=== PATIENT | female | born 2000 | race Caucasian/White ===

== ENCOUNTER 2021-05-10 16:29 | Emergency (ER) | payer BC, SELFPAY ==
[2021-05-10 16:30] VITALS: BP 112/83; PULSE 74; RESP 20; TEMP 36.8; O2SAT 97
--- NOTE | 2021-05-10 16:36 | ED.URI ---
HPI - URI/Sore Throat General Chief Complaint: Upper Respiratory Infection Stated Complaint: cough sore throat runny nose Time Seen by Provider: 05/10/21 16:55 Source: patient and RN notes reviewed Mode of arrival: ambulatory Limitations: no limitations History of Present Illness HPI Narrative: 21-year-old female presents with concern for cough, sore throat, vomiting, nasal drainage. Reports symptoms started on Saturday. Reports exposure to a coworker who was Covid positive. She denies shortness of breath, fevers, body aches, chills, sweats, loss of sense of taste or smell. Reports taking [id number] antihistamine. MD elicited complaint: cough Related Data Allergies Allergy/AdvReac Type Severity Reaction Status Date / Time No Known Allergies Allergy Verified 05/10/21 17:03 Review of Systems Review of Systems: CONSTITUTIONAL: Denies malaise, chills, sweats, or fever. EYES: Denies visual changes, redness, or discharge. ENT: Reports rhinorrhea, congestion, sore throat. Denies sinus pain, otalgia CARDIOVASCULAR: Denies chest pain, palpitations, or edema. RESPIRATORY: Reports cough. Denies dyspnea. GASTROINTESTINAL: Denies abdominal pain, nausea, vomiting, diarrhea SKIN: Denies rash or itching. MUSCULOSKELETAL: Denies myalgia. NEUROLOGIC: Denies headache. All systems reviewed & are unremarkable except as noted in HPI and below PMFSH Comments At time of signature, agree with nursing past medical, surgical, social and family history. There is no relevant family history pertinent to the presenting complaint Exam Narrative: GENERAL: Well-appearing, well-nourished, and in no acute distress. HEAD: Normocephalic EYES: PERRLA, conjunctivae clear ENT: Nares clear, clear discharge. Mucous membranes moist. TM pearly lima with dull light reflex bilaterally; no tragal tenderness. Oropharynx mildly erythematous without lesions. Tonsils not enlarged and without exudate, no drooling, no hoarseness, no trismus, uvula midline. NECK: Supple. No lymphadenopathy CHEST: Clear to auscultation, breath sounds equal. No wheezing, rhonchi, rales, or stridor. No respiratory distress, speaks in full sentences. HEART: Regular rate and rhythm. No murmur heard. SKIN: Warm, dry, no rash. NEURO: Alert and oriented x3. PSYCH: Normal mood and affect Course Course Emergency Course: Patient is aware of diagnosis, understands and agrees to treatment plan. Anticipatory guidance given. Patient agrees to follow-up as directed and is aware of reasons to seek care at the emergency department. Portions of this record may have been created with voice recognition software Vital Signs Vital signs: Reviewed. MDM - URI/Sore Throat MDM Narrative Medical decision making narrative: Differential diagnosis considered: Luther virus, strep pharyngitis, allergic rhinitis, upper respiratory tract infection, sinusitis, rhinosinusitis, nasopharyngitis. viral pharyngitis, otitis media, otitis externa, pneumonia, bronchitis, viral cough syndrome, viral syndrome, and influenza. Exam findings show no acute concerns or changes; patient is non-toxic appearing and is in no distress. Patient is appropriate for outpatient treatment and follow-up. Critical Care Time Critical Care Time Critical Care Time: No Discharge Plan Discharge Clinical Impression: Upper respiratory infection Qualifiers: URI type: unspecified viral URI Qualified Code(s): J06.9 - Acute upper respiratory infection, unspecified Patient Disposition: Home, Self-Care Condition: Stable Instructions: Upper Respiratory Infection (ED) Additional Instructions: Your rapid COVID test was negative, a PCR test is being sent to the lab. If you are symptomatic, there is a high possibility your rapid test may not have detected the virus. Your negative rapid test does not rule out Covid infection, please wait for the PCR results to confirm that. Continue to isolate, wear a mask, wash your hands. Common Adult Symptoms:
[2021-05-12 18:14] LABS: SARS-CoV-2 RNA PCR Negative
== END 2021-05-10 17:10 | disposition home or self-care (01) ==
PROVIDERS: Emergency Provider Nurse Practitioner
DX: J02.9 Acute pharyngitis, unspecified (principal); Z20.822 Contact with and (suspected) exposure to COVID-19
CPT/HCPCS: 87081; 87426; 87880; 99213; C9803; G0463; U0003; U0005

== ENCOUNTER 2023-08-03 17:23 | Emergency (ER) | payer OTHER, SELFPAY ==
[2023-08-03 17:29] VITALS: BP 102/70; PULSE 86; RESP 16; TEMP 36.8; O2SAT 99
--- NOTE | 2023-08-03 17:44 | ED.URI ---
HPI - URI/Sore Throat General Chief Complaint: Upper Respiratory Infection Stated Complaint: Sore Throat Source: patient, family and RN notes reviewed History of Present Illness HPI Narrative: 23 yo F presents to urgent care with mom at side. Pt states she has been having strep throat x 10 days. Denies any other symptoms including fevers, chills, vomiting, chest pain, or SOB. Related Data Allergies Allergy/AdvReac Type Severity Reaction Status Date / Time No Known Allergies Allergy Verified 08/03/23 17:46 Review of Systems Review of Systems: CONSTITUTIONAL: Denies fever, chills, or sweats. EYES: Denies visual changes, redness, or discharge. ENT: Denies otalgia CARDIOVASCULAR: Denies chest pain, palpitations, or edema. RESPIRATORY: Denies cough or dyspnea. GASTROINTESTINAL: Denies abdominal pain, nausea, vomiting, or diarrhea. GENITOURINARY: Denies dysuria or hematuria. SKIN: Denies rash or itching. MUSCULOSKELETAL: Denies back pain, joint pain, or myalgia. NEUROLOGIC: Denies headache, numbness, or weakness. Pertinent positives per HPI. PMFSH Comments At the time of my signature, I reviewed and agree with the nursing past medical, surgical, social, and family history. There is no relevant family history pertinent to the patient complaint. Exam Narrative: GENERAL: This is a well-nourished, well-developed patient, in no apparent distress. HEAD: normocephalic, atraumatic. EYES: Sclera clear/white. Vision is grossly intact. EARS: External ears normal, auditory canals clear and without drainage, TMs normal without perforation. Hearing grossly intact. NOSE: External nose normal with no obvious nasal discharge, nares without redness, no rhinorrhea. THROAT: Mucous membranes moist, posterior pharynx clear. NECK: Neck supple, non-tender without lymphadenopathy, masses or thyromegaly. CARDIOVASCULAR: Regular rate and rhythm without murmurs, gallops, or rubs. RESPIRATORY: Clear to auscultation. Breath sounds equal bilaterally. No wheezes, rales, or rhonchi. GASTROINTESTINAL: Abdomen soft, non-tender, nondistended. Bowel sounds are active. No hepato-splenomegaly, or palpable masses. No guarding. SKIN: warm, intact with no suspicious lesions or rash, good texture and turgor. NEURO: awake, alert, and oriented to person, place and time. There were no obvious focal neurologic abnormalities. EXTREMITIES: No clubbing, cyanosis, or edema. No joint tenderness, effusion, or edema noted. BACK: Nontender without deformity or crepitus. No flank tenderness. Course Course Level of Care: Express Care Visit Vital Signs Vital signs: Vital Signs Temperature 98.3 F 08/03/23 17:29 Pulse Rate 86 08/03/23 17:29 Respiratory Rate 16 08/03/23 17:29 Blood Pressure 102/70 08/03/23 17:29 Pulse Oximetry 99 08/03/23 17:29 Oxygen Delivery Room Air 08/03/23 17:29 Temperature 98.3 F 08/03/23 17:29 Pulse Rate 86 08/03/23 17:29 Respiratory Rate 16 08/03/23 17:29 Blood Pressure 102/70 08/03/23 17:29 Pulse Oximetry 99 08/03/23 17:29 Oxygen Delivery Room Air 08/03/23 17:29 Reviewed MDM - URI/Sore Throat MDM Narrative Medical decision making narrative: After 24 hours on antibiotics throw tooth brush away and start using a new one. Increase your Vitamin C. Do not share drinks. Take Motrin alternating with Tylenol for pain and/or fever alternating every 4 hours. Increase fluids, avoid caffeine. Take a probiotic daily or eat a low sugar yogurt while taking the antibiotic. Follow up with Primary provider if not getting better this week Differential Diagnosis Differential diagnosis: Likely upper respiratory infection, otitis media, sinusitis, viral infection and pharyngitis Lab Data Attestation: I reviewed the patient's lab results. Labs: Strep Screen Positive Group A Strep *(Reference Range: Negative)* Critical Care Time Critical Care T
== END 2023-08-03 18:02 | disposition home or self-care (01) ==
PROVIDERS: Emergency Provider Nurse Practitioner Family
DX: J02.0 Streptococcal pharyngitis (principal)
CPT/HCPCS: 87880; 99213; G0463

== ENCOUNTER 2024-08-07 16:32 | Emergency (ER) | payer SELFPAY ==
[2024-08-07 16:47] VITALS: BP 125/82; PULSE 100; RESP 18; TEMP 37.3; O2SAT 100
--- NOTE | 2024-08-07 17:09 | ED.URI ---
HPI - URI/Sore Throat General Chief Complaint: Upper Respiratory Infection Stated Complaint: Sore Throat History of Present Illness HPI Narrative: 24 y/o female presented for c/o sore throat, nasal congestion and pressure. Onset 2 days. Taking cough drops without much improvement. Denies cough, sob, wheezing, n/v/d/f/c. Related Data Home Medications Medication Instructions Recorded Confirmed sertraline 50 mg tablet 50 mg PO DAILY 08/07/24 08/07/24 Allergies Allergy/AdvReac Type Severity Reaction Status Date / Time No Known Allergies Allergy Verified 08/07/24 17:17 Review of Systems Review of Systems: CONSTITUTIONAL: Denies body aches, fever, chills, or sweats. EYES: Denies visual changes, redness, or discharge. ENT: reports rhinorrhea, congestion, denies sore throat or otalgia. CARDIOVASCULAR: Denies chest pain, palpitations, or edema. RESPIRATORY: Denies cough dyspnea. GASTROINTESTINAL: Denies abdominal pain, nausea, vomiting, or diarrhea. SKIN: Denies rash, itching, or wounds. MUSCULOSKELETAL: Denies back pain, joint pain, or myalgia. NEUROLOGIC: Denies headache Exam Narrative: GENERAL: mildly Ill-appearing, no acute distress. EYES: conjunctivae clear ENT: Mucous membranes moist. TMs pearly lima with normal light reflex bilaterally; no tragal tenderness. Oropharynx erythematous without lesions. Tonsils absent. No drooling, no hoarseness, no trismus, uvula midline. No tripod positioning, hot potato voice, or soft palate swelling. NECK: Supple. No lymphadenopathy CHEST: Clear to auscultation, breath sounds equal. No respiratory distress, speaks in full sentences. HEART: Regular rate and rhythm. No murmur heard. SKIN: Warm, dry, no rash. NEURO: Alert and oriented x3. Course Course Emergency Course: Patient is aware of diagnosis, understands and agrees to treatment plan. Anticipatory guidance given. Patient agrees to follow-up as directed and is aware of reasons to seek care at the emergency department. Portions of this record may have been created with voice recognition software Level of Care: Express Care Visit Vital Signs Vital signs: Vital Signs Temperature 99.2 F 08/07/24 16:47 Pulse Rate 100 08/07/24 16:47 Respiratory Rate 18 08/07/24 16:47 Blood Pressure 125/82 08/07/24 16:47 Pulse Oximetry 100 08/07/24 16:47 Temperature 99.2 F 08/07/24 16:47 Pulse Rate 100 08/07/24 16:47 Respiratory Rate 18 08/07/24 16:47 Blood Pressure 125/82 08/07/24 16:47 Pulse Oximetry 100 08/07/24 16:47 MDM - URI/Sore Throat MDM Narrative Medical decision making narrative: Neg flu, covid, and strep result reviewed with pt. Advise supportive treatments. Patient is appropriate for outpatient treatment and follow-up. Differential Diagnosis Differential diagnosis: Likely upper respiratory infection, otitis media, sinusitis, viral infection, influenza and pharyngitis Discharge Plan Discharge Clinical Impression: Upper respiratory infection Qualifiers: URI type: unspecified URI Qualified Code(s): J06.9 - Acute upper respiratory infection, unspecified Patient Disposition: Home, Self-Care Condition: Stable Instructions: Antibiotic Form, Upper Respiratory Infection (ED) Additional Instructions: Flu and covid negative. Rapid strep swab was negative today You will be notified in a few days if the culture comes back positive for strep, and appropriate antibiotics will be called in at that time. if symptoms are due to a viral illness, it is not treated with antibiotics. Viral symptoms can be present for up to 10-14 days. Recommendations: Flonase spray and Zyrtec for sinus congestion Cough syrup may cause drowsiness; avoid driving or take it at night time. Tylenol every 8 hours as needed for pain/fever Soft foods, cool liquids, warm tea. Gargle with warm saltwater twice a day. Chloraseptic spray and throat lozenges. Rest and stay hydrated. --Follow up with your PCP --Go to the ER immediately if you cannot swallow your saliva, trouble breathing/wheezing, throat swelling, pain is persistent and severe Prescriptions: No Action amoxicillin 500 mg capsule 500 mg PO Q12H Qty: 20 0RF Follow-up/Referrals: PHYSICIAN,PLASMA PROCESSING TECHNICIAN [Primary Care Provider] - Stand Alone Forms: Work/School Release IP
[2024-08-07 17:15] LABS: EDSTREPNEGPOS1 Negative (Negative)
[2024-08-07 17:40] LABS: EDCOVIDSCREEN Negative (Negative)
[2024-08-07 17:41] LABS: EDINFLUASCREEN Negative (Negative); EDINFLUBSCREEN Negative (Negative)
== END 2024-08-07 17:20 | disposition home or self-care (01) ==
PROVIDERS: Emergency Provider Nurse Practitioner Family
DX: J06.9 Acute upper respiratory infection, unspecified (principal); Z20.822 Contact with and (suspected) exposure to COVID-19
CPT/HCPCS: 87081; 87426; 87804; 87880; 99213; G0463

== ENCOUNTER 2025-03-23 13:09 | Emergency (ER) | payer SELFPAY ==
--- NOTE | ~2025-03-23 | XR_ITS ---
EXAMINATION: XR chest 2V 03/23/2025 13:46 INDICATION: Cough and dyspnea PROCEDURE: 2 view chest COMPARISON: No prior studies for comparison. FINDINGS: The lungs are clear. The cardiomediastinal silhouette is within normal limits. There are no pleural effusions. There is no pneumothorax suspected. IMPRESSION: 1: NO ACUTE CARDIOPULMONARY DISEASE. Reviewed, dictated and finalized at location B.
--- OUTSIDE RECORDS SUMMARY | 2025-03-23 13:16 | XMS_ITS | Referral Summary ---
Author Organization [facility] Address [address] [place] [address] Care Team Providers Care Barrelhead Inspector Name Role Phone Ana Luisa Scales NP Primary Care Provider Allergies No known active allergies Medications traZODone (DESYREL) 50 mg tablet 08/21/2019 Active sertraline (ZOLOFT) 100 mg tablet Take 100 mg by mouth every morning 09/29/2020 Active desogestreL-eth inyl estradioL (Apri) 0.15-0.03 mg per tablet Take 1 tablet by mouth daily 84 tablet 3 12/02/2020 Active hydrOXYzine (ATARAX) 25 mg tablet Take 25 mg by mouth daily as needed Active Active Problems Problem Noted Date Diagnosed Date Chronic migraine without aur a without status migrainosus, not intractable 06/12/2018 Chest pain 09/13/2016 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 Depression 08/24/2015 Overview (12/14/2016): Depression Disorder of thyroid 08/24/2015 Overview (12/14/2016): Thyroid disease Joint pain 03/07/2015 Pes planus 03/07/2015 Elevated antinuclear antibody (NADEGE) level 2014 Knee pain 03/07/2015 Myopia 01/23/2014 Overview (12/13/2016): Myopia of both eyes Acute streptococcal pharyngitis 01/23/2014 Overview (12/14/2016): Streptococcal pharyngitis Scoliosis 01/23/2014 Overview (12/14/2016): Scoliosis Medical examinations/reports status 2000 Overview (12/13/2016): Health care maintenance Social History Tobacco Use Types Packs/Day Years Used Date Smoking Tobacco: Never Smokeless Tobacco: Never Alcohol Use Standard Drinks/Week Comments No 0 (1 standard drink = 0.6 oz pur e alcohol) PHQ-2 Answer Date Recorded PHQ-2 Total Score (If total score is 3 or more points, staff should administer the PHQ-9) 0 12/02/2020 Comments No Sex and Gender Information Value Date Recorded Sex Assigned at Not on file Legal Sex Female 10:24 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 Gender Identity Not on file Sexual Orientation Not on file Last Filed Vital Signs Vital Sign Reading Time Taken Comments Blood Pressure 116/76 12/29/2020 11:54 AM CDT Pulse 74 12/29/2020 11:54 AM CDT Temperature 37.1 C (98.7 F) 12/29/2020 11:54 AM CDT Respiratory Rate 20 12/29/2020 11:54 AM CDT Oxygen Saturation 97% 12/29/2020 11:54 AM CDT Inhaled Oxygen Concentration - - Weight 54 kg (119 lb) 12/29/2020 11:54 AM CDT Height 149.9 cm (4' 11) 12/29/2020 11:54 AM CDT Body Mass Index 24.04 12/29/2020 11:54 AM CDT Plan of Treatment Not on file Insurance [facility] BLUE ACCESS OOS BLUE ACCESS OOS Care Teams Barrelhead Inspector Relationship Specialty Start Date End Date Ana Luisa Scales NP PCP - General 12/07/16
--- OUTSIDE RECORDS SUMMARY | 2025-03-23 13:16 | XMS_ITS | Clinical Summary ---
Author Organization [facility] Address [address] [facility], [address] [address] Phone Care Team Providers Care Storage Garage Manager Name Role Phone PreciousAna Luisa green Margaux THAKKAR Primary Care Provider [phone] Allergies No known active allergies Medications hydrOXYzine (VISTARIL) 25 MG Capsule take 1 capsule by oral route 3 times every day 08/24/2015 Active PARoxetine (PAXIL) 20 MG Tablet take 1 tablet by oral route every day 08/24/2015 Active SUMAtriptan (IMITREX) 25 MG Tablet Take at onset of HYMAN. If HYMAN persists may repeat in 2 hours. Not more than 2 per day and not more than 3 per week 10/17/2017 Active topiramate (TOPAMAX) 25 MG CAPSULE SPRINKLE Take 1 tablet at bedtime x 1 week then 2 tablets at bedtime 10/17/2017 Active FLUoxetine (PROZAC) 20 MG Capsule Take 20 mg by mouth 2 times daily. 01/01/2020 Active sertraline (ZOLOFT) 100 MG Tablet Take 100 mg by mouth daily. 05/21/2020 Active Active Problems Problem Noted Date Diagnosed Date Tarsal tunnel syndrome of left side 09/26/2017 Posterior tibial tendon dysf unction (PTTD) of left lower extremity 09/26/2017 Pain in left foot 09/26/2017 Plantar fasciitis, left 09/26/2017 Generalized anxiety disorder 06/26/2017 Major depressive disorder, recurrent, moderate 1 Family History Medical History Relation Name Comments Allergies Brother Tanner Asthma Brother Tanner Allergies Father Kirby Asthma Father Kirby Hypertension Father Kirby Cancer Maternal Grandfather Lung an d bone Chronic Obstructive Pulmonary Disease Maternal Grandmo ther Diabetes Maternal Grandmother Hypertension Maternal Grandmother Hypertension Mother Elsy Relation Name Status Comments Brother Tanner Alive Father Kirby Alive Maternal Grandfather Maternal Grandmother Mother Elsy Alive Social History Tobacco Use Types Packs/Day Years Used Date Smoking Tobacco: Never Smokeless Tobacco: Never Tobacco Cessation:Counseling Given: Yes Alcohol Use Standard Drinks/Week Comments No 0 (1 standard drink = 0.6 oz pur e alcohol) Sexually Active Control Partners Comments Yes Male Comments No Sex and Gender Information Value Date Recorded Sex Assigned at Not on file Legal Sex Female 9:29 AM CHIEF FUNDRAISING OFFICER Gender Identity Not on file Sexual Orientation Not on file Last Filed Vital Signs Vital Sign Reading Time Taken Comments Blood Pressure 104/60 10/23/2017 3:56 PM CHIEF FUNDRAISING OFFICER Pulse 89 10/23/2017 3:56 PM CHIEF FUNDRAISING OFFICER Temperature 36.4 C (97.5 F) 10/23/2017 3:56 PM CHIEF FUNDRAISING OFFICER Respiratory Rate 18 10/23/2017 3:56 PM CHIEF FUNDRAISING OFFICER Oxygen Saturation 95% 10/23/2017 3:56 PM CHIEF FUNDRAISING OFFICER Inhaled Oxygen Concentration - - Weight 56.7 kg (125 lb) 10/23/2017 3:56 PM CHIEF FUNDRAISING OFFICER Height 152.4 cm (5') 10/23/2017 3:56 PM CHIEF FUNDRAISING OFFICER Body Mass Index 24.41 10/23/2017 3:56 PM CHIEF FUNDRAISING OFFICER Plan of Treatment Health Maintenance Due Date Last Done Comments Hepatitis C Virus (HCV) Screening 2000 Human Papillomavirus (HPV) Immunization (2 - 3-dose series) 07/22/2017 06/24/2017 SARS-COV-2 Immunization (2023- season) 2024 Influenza Immunization (#1) 2025 Respiratory Syncytial Virus (RSV) Immunization (Adult) (1 - 1-dose 75+ series) 01/02/2075 Hepatitis B Immunization Completed 001, 2000, 2000 Pneumococcal Immunization Combined Completed 03/31/2001, 2000, 2000 DTaP/Tdap/Td Immunization Discontinued 2013, 02/11/2005, 06/20/2001, Additional history exists TdaP Immunization Completed 01/12/2014 Meningococcal B Immunization Discontinued 06/24/2017 Meningococcal Immunization (ACWY) Completed 06/24/2017, 01/12/2014 Rotavirus Immunization Aged Out No lo nger eligible based on patient's age to complete this topic Goals Goal Patient Goal Type Associated Problems Recent Progress Patient-Stated? Author Patient to report a decrease in the intensity and frequency of anxious and depressive symptoms Behavioral Health No change(2019 1:35 PM CDT) No Giana Sorensen, [facility] Insurance [facility] Care Teams Storage Garage Manager Relationship Specialty Start Date End Date Ana Luisa Scales APRN [address] [place] [address] PCP - General Family Medicine 02/14/16
--- OUTSIDE RECORDS SUMMARY | 2025-03-23 13:16 | XMS_ITS | Clinical Summary ---
Author Organization [facility] Address [address] [place] [address] Care Team Providers Care Recreation Professor Name Role Phone Ana Luisa Scales NP [...] status 2000 Overview (12/13/2016): Health care maintenance Surgical History Surgery Date Site/Laterality Comments TONSILLECTOMY Medical History Medical History Date Comments Migraine Thyroid disease Family History Medical History Relation Name Comments Asthma Brother Asthma; Hyperlipidemia Father Hyperlipidemi a; Hypertension Father Hypertension; Bone cancer Maternal Grandfather Cancer, bone; Lung cancer Maternal Grandfather Cancer, lung; Diabetes Maternal Grandmother Diabete s mellitus; Heart disease Maternal Grandmother Heart disease; Hypertension Mother Hypertension; Relation Name Status Comments Brother Father Maternal Grandfather Maternal Grandmother Mother Social History Tobacco Use Types Packs/Day Years [...] on file Legal Sex Female 10:24 PM SENIOR DATABASE ENGINEER Gender Identity Not on file Sexual Orientation Not on file Obstetrics History Para Term AB IAB SAB Ectopic Multiple Livin g Live Births 0 0 0 0 0 0 0 0 0 0 0 Last Filed Vital Signs Vital Sign Reading [...] 12/29/2020 11:54 AM CDT Plan of Treatment Health Maintenance Due Date Last Done Comments Cervical Cancer Screening 2000 Hepatitis C Screening 2000 HPV Vaccines (2 - 3-dose series) 07/22/2017 06/24/20 17 Depression Screening 12/02/2021 12/02/2020, 11/11/2019, 08/21/2018 Regular Well Visit/Exam 18-64 12/02/2021 12/02/2020 DTaP/Tdap/Td Vaccine (7 - Td or Tdap) 01/13/2024 01/12/2014, 02/11/2005, 06/20/2001, Additional history exists Influenza Vaccine (#1) 2025 05/31/2014 Hepatitis B Screening Completed 2000 , 2000, 2000 Pneumococcal vaccine <65 Completed 001, 2000, 2000 Varicella Vaccines Completed 01/12/2014, 01/14/2001 Insurance [place] [facility] [employer] OOS Care Teams Recreation Professor Relationship Specialty Start Date End Date Ana Luisa Scales NP PCP - General 12/07/16
[2025-03-23 13:22] VITALS: BP 111/73; PULSE 72; RESP 16; TEMP 37.2; O2SAT 100
--- NOTE | 2025-03-23 13:53 | ED.URI ---
HPI - URI/Sore Throat General Chief Complaint: Upper Respiratory Infection Stated Complaint: Cough/Shortness of Breath Time Seen by Provider: 03/23/25 13:30 Source: patient, family and RN notes reviewed Mode of arrival: ambulatory Limitations: no limitations History of Present Illness HPI Narrative: 25-year-old female presents Express Care complaining of cough for 1 month. Patient reports a dry hacking cough that has not got better over last month. His said over the last with the cough is getting worse and she is having coughing spells where she starts to feel short of breath and cannot stop coughing. Patient reports the chest pain when she is coughing too much. Patient denies any current chest pain, chest pain with exertion, difficulty breathing, fevers, body aches chills, upper respiratory symptoms, wheezing, nausea, vomiting, or any other symptoms. Patient has tried [id number] medicines such as Mucinex and cough medicine without relief. Patient denies any significant past medical history. Patient is not take any control. Patient denies any recent surgeries. Related Data Home Medications ?Medication ?Instructions ?Recorded ?Confirmed ?Last Taken ?Type sertraline 50 mg tablet 50 mg PO DAILY 08/07/24 08/07/24 Unknown History Allergies Allergy/AdvReac Type Severity Reaction Status Date / Time No Known Allergies Allergy Verified 08/07/24 17:17 Review of Systems Review of Systems: CONSTITUTIONAL: Denies fever, body aches, chills, or sweats. EYES: Denies visual changes, redness, or discharge. ENT: Denies rhinorrhea, congestion, sore throat, or otalgia. CARDIOVASCULAR: Denies chest pain, chest pain with exertion, dizziness, lightheadedness, palpitations, or edema. RESPIRATORY: Positive for cough and shortness of breath. Negative for wheezing or difficulty breathing. GASTROINTESTINAL: Denies abdominal pain, nausea, vomiting, or diarrhea. GENITOURINARY: Denies dysuria or hematuria. SKIN: Denies rash or itching. MUSCULOSKELETAL: Denies back pain, joint pain, or myalgia. NEUROLOGIC: Denies headache, numbness, loss of consciousness, or weakness. PSYCHIATRIC: Denies anxiety or depression. All other systems reviewed are negative, except as documented in HPI. PMFSH Comments At the time of my signature, I reviewed and agree with the nursing past medical, surgical, social, and family history. There is no relevant family history pertinent to the patient complaint. Exam Narrative: GENERAL: This is a well-nourished, well-developed adult, in no apparent distress. They are non ill-appearing, nontoxic appearing. HEAD: normocephalic, atraumatic. EYES: Sclera clear/white. Conjunctiva normal. Vision is grossly intact. Extraocular movements intact EARS: External ears normal, auditory canals clear and without drainage, TMs normal without perforation. Hearing grossly intact. NOSE: External nose normal with no obvious nasal discharge, nasal turbinates without redness, no rhinorrhea. THROAT: Mucous membranes moist, posterior pharynx clear, without erythema or swelling. Uvula midline. NECK: Neck supple, non-tender without lymphadenopathy, masses or thyromegaly. CARDIOVASCULAR: Regular rate and rhythm without murmurs, gallops, or rubs. RESPIRATORY: Clear to auscultation. Breath sounds equal bilaterally. No wheezes, rales, or rhonchi. Respiratory rate normal, respiratory effort nonlabored, no respiratory distress, no accessory muscle use, no retractions. Patient is able to speak in full sentences. SKIN: warm, Dry, intact with no suspicious lesions or rash, good texture and turgor. NEURO: awake, alert, and oriented to person, place and time. There were no obvious focal neurologic abnormalities. EXTREMITIES: No joint tenderness, effusion, or edema noted. BACK: Nontender without deformity. No CVA tenderness. Course Course Emergency Course: Portions of this record may have been created with voice recognition software Level of Care: Express Care Visit Vital Signs Vital signs: Vital Signs Temperature 98.9 F 03/23/25 13:22 Pulse Rate 72 03/23/25 13:22 Respiratory Rate 16 03/23/25 13:22 Blood Pressure 111/73 03/23/25 13:22 Pulse Oximetry 100 03/23/25 13:22 Oxygen Delivery Room Air 03/23/25 13:22 Temperature 98.9 F 03/23/25 13:22 Pulse Rate 72 03/23/25 13:22 Respiratory Rate 16 03/23/25 13:22 Blood Pressure 111/73 03/23/25 13:22 Pulse Oximetry 100 03/23/25 13:22 Oxygen Delivery Room Air 03/23/25 13:22 Reviewed MDM - URI/Sore Throat MDM Narrative Medical decision making narrative: Chest x-ray shows no evidence of pneumonia or acute cardiopulmonary findings. Wells score of 0 and PERC score 0. Low suspicion for pulmonary embolism. Patient likely has a bronchitis. Given patient's length of symptoms will go ahead and treat with azithromycin, prednisone, and benzonatate tablets. Discussed physical exam findings. Advised supportive measures and signs/symptoms to go to the ER. Pt is appropriate for outpt treatment and f/u. Differential Diagnosis Differential diagnosis: Likely upper respiratory infection, viral infection, bronchitis and other (Pneumonia, pertussis) Critical Care Time Critical Care Time Critical Care Time: No Discharge Plan Discharge Clinical Impression: Bronchitis Patient Disposition: Home Condition: Stable Instructions: Antibiotic Form, Acute Bronchitis (ED) Additional Instructions: Take prednisone as directed. Take in the morning take with food. Take azithromycin as directed. You may use benzonatate tablets as needed for cough. Recommend Flonase spray and Zyrtec (or Claritin/[place]). You may take Tylenol or ibuprofen as needed for pain or fevers. Symptomatic treatment includes: rest, fluids, and increase humidity of the air at home. Follow up with your primary care provider 3-5 days Go to the ER for worsening symptoms, chest pain, difficulty breathing, able to speak in full sentences, nausea vomiting, or any other concerns Patient Language: [place] Prescriptions: New azithromycin 250 mg tablet See Rx Instructions .ROUTE .COMPLEX Qty: 6 0RF Rx Instructions: For 250 mg dose pack: take 500 mg today (day 1), then 250 mg for 4 days (days 2-5) prednisone 20 mg tablet 40 mg PO DAILY 5 Days Qty: 10 0RF benzonatate 100 mg capsule 100 mg PO TID PRN (Reason: cough) Qty: 20 0RF No Action sertraline 50 mg tablet 50 mg PO DAILY Follow-up/Referrals: PHYSICIAN NOT ON STAFF,NONSTAFF [Primary Care Provider] - Time of Disposition: 14:15
== END 2025-03-23 14:23 | disposition home or self-care (01) ==
DX: J40 Bronchitis, not specified as acute or chronic (principal)
CPT/HCPCS: 71046; 99213; G0463